=== PATIENT | male | born 1950 | race Caucasian/White ===

== ENCOUNTER 2017-04-09 17:44 | Emergency (ER) | payer MEDICARE, OTHER ==
[~2017-04-09] VITALS: Ht 167.6 cm; Wt 92.9 kg
[~2017-04-09 17:44] MED LIST: OMPR20CCR PO; ZOFR4TAB3 SL
[2017-04-09 17:59] VITALS: BP 155/76; PULSE 91; RESP 18; TEMP 98.9; O2SAT 94
[2017-04-09] MEDS ORDERED: SODIUM CHLOR 0.9% 1000 ML INJ 1,000 ML IV ONE ×2 (18:15→20:00)
[2017-04-09] MEDS ORDERED: SODIUM CHLORIDE 0.9% FLUSH 10 ML FLUSH IVF PRN (18:15)
--- NOTE | 2017-04-09 18:18 | PD ---
HPI Chief Complaint: Abnormal Results Time Seen by Provider: 18:16 Travel History International Travel<30 days: No Contact w/Intl Traveler<30days: No Traveled to known affect area: No History of Present Illness HPI 66-year-old male patient with history of hypertension, for the last 6 weeks has been having polydipsia and polyuria, and [facility] noted that his A1c's were high and his blood sugar was in the 400s today. He denies any vomiting, fevers, abdominal pain, or any other symptoms. He has not previously been officially diagnosed with diabetes. 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 Awake and oriented 3. SKIN: Focused skin assessment warm/dry. HEAD: Atraumatic. Normocephalic. EYES: Pupils equal and round. No scleral icterus. No injection or drainage. ENT: No nasal bleeding or discharge. Mucous membranes pink and moist. NECK: Trachea midline. No JVD. CARDIOVASCULAR: Regular rate and rhythm. No murmur appreciated. RESPIRATORY: No accessory muscle use. Clear to auscultation. Breath sounds equal bilaterally. GASTROINTESTINAL: Abdomen soft, non-tender, nondistended. Hepatic and splenic margins not palpable. MUSCULOSKELETAL: No obvious deformities. No clubbing. No cyanosis. No edema. NEUROLOGICAL: Awake and alert. No obvious cranial nerve deficits. Motor grossly within normal limits. Normal speech. PSYCHIATRIC: Appropriate mood and affect; insight and judgment normal. Data Data Last Documented VS Vital Signs Date Time Temp Pulse Resp B/P (MAP) Pulse Ox O2 Delivery O2 Flow Rate FiO2 04/09/17 18:21 Room Air 04/09/17 18:21 97 04/09/17 17:59 98.9 91 18 155/76 (102) Orders Orders Complete Blood Count With Diff (04/09/17 18:13) Comprehensive Metabolic Panel (04/09/17 18:13) Beta Hydroxybutyrate (Acetone) (04/09/17 18:13) Urinalysis - C+S If Indicated (04/09/17 18:13) Ecg Monitoring (04/09/17 18:13) Iv Access Insert/Monitor (04/09/17 18:13) Oximetry (04/09/17 18:13) NPO (04/09/17 18:13) Sodium Chloride 0.9% Flush (Ns Flush) (04/09/17 18:15) Sodium Chlor 0.9% 1000 Ml Inj (Ns 1000 M (04/09/17 18:15) Labs Laboratory Tests Test 04/09/17 18:25 04/09/17 18:30 White Blood Count 4.3 TH/MM3 Red Blood Count 5.38 MIL/MM3 Hemoglobin 14.8 GM/DL Hematocrit 44.9 % Mean Corpuscular Volume 83.4 FL Mean Corpuscular Hemoglobin 27.5 PG Mean Corpuscular Hemoglobin Concent 32.9 % Red Cell Distribution Width 12.2 % Platelet Count 197 TH/MM3 Mean Platelet Volume 9.5 FL Neutrophils (%) (Auto) 54.5 % Lymphocytes (%) (Auto) 35.7 % Monocytes (%) (Auto) 6.7 % Eosinophils (%) (Auto) 2.3 % Basophils (%) (Auto) 0.8 % Neutrophils # (Auto) 2.4 TH/MM3 Lymphocytes # (Auto) 1.5 TH/MM3 Monocytes # (Auto) 0.3 TH/MM3 Eosinophils # (Auto) 0.1 TH/MM3 Basophils # (Auto) 0.0 TH/MM3 CBC Comment DIFF FINAL Differential Comment Creatinine 1.50 MG/DL Albumin 3.6 GM/DL Calcium Level 9.0 MG/DL Total Bilirubin 0.5 MG/DL Sodium Level 130 MEQ/L Potassium Level 4.3 MEQ/L Chloride Level 96 MEQ/L Carbon Dioxide Level 22.8 MEQ/L Anion Gap 11 MEQ/L Estimat Glomerular Filtration Rate 47 ML/MIN B-Hydroxybutyrate 0.94 MMOL/L MDM Medical Decision Making Medical Screen Exam Complete: Yes Emergency Medical Condition: Yes Medical Record Reviewed: Yes Interpretation(s) Laboratory Tests Test 04/09/17 18:25 04/09/17 18:30 Creatinine 1.50 MG/DL (0.60-1.30) Sodium Level 130 MEQ/L (136-145) Chloride Level 96 MEQ/L (98-107) Estimat Glomerular Filtration Rate 47 ML/MIN (>89) B-Hydroxybutyrate 0.94 MMOL/L (0.00-0.39) Differential Diagnosis Hyperglycemia, rule out other metabolic processes versus DKA Narrative Course Patient was given IV fluids in the ER. Lab work was ordered for further evaluation. Physician Communication Physician Communication Case is signed out at [address] Matthews pending workup. Disposition based on pending metabolic panel. Diagnosis Primary Impression: Hyperglycemia Scripts No Active Prescriptions or Reported Meds Condition: Stable Saige Riojas MD Apr 09, 2017 18:18
[2017-04-09 18:21] VITALS: O2SAT 97
[2017-04-09 18:37] LABS: AUTOMATED NEUTROPHIL # 2.4 TH/MM3 (1.8-7.7); BASOPHIL % 0.8 % (0.0-2.0); EOSINOPHIL # 0.1 TH/MM3 (0-0.4); EOSINOPHIL % 2.3 % (0.0-4.0); HEMATOCRIT 44.9 % (39.0-51.0); HEMOGLOBIN 14.8 GM/DL (13.0-17.0); LYMPH % 35.7 % (9.0-44.0); LYMPHOCYTE # 1.5 TH/MM3 (1.0-4.8); MEAN CELL VOLUME 83.4 FL (80.0-100.0); MEAN CORPUSCULAR HEMOGLOBIN 27.5 PG (27.0-34.0); MEAN CORPUSCULAR HGB CONC 32.9 % (32.0-36.0); MEAN PLATELET VOLUME 9.5 FL (7.0-11.0); MONO % 6.7 % (0.0-8.0); MONOCYTE # 0.3 TH/MM3 (0-0.9); NEUT % 54.5 % (16.0-70.0); PLATELET COUNT 197 TH/MM3 (150-450); RED BLOOD COUNT 5.38 MIL/MM3 (4.50-5.90); RED CELL DISTRIBUTION WIDTH 12.2 % (11.6-17.2); WHITE BLOOD COUNT 4.3 TH/MM3 (4.0-11.0)
[2017-04-09 18:47] LABS: CHLORIDE 96 MEQ/L (98-107); SODIUM (NA) 130 MEQ/L (136-145)
[2017-04-09 18:51] LABS: ALBUMIN 3.6 GM/DL (3.4-5.0); BICARBONATE 22.8 MEQ/L (21.0-32.0)
[2017-04-09 18:54] LABS: GLOMERULAR FILTRATION RATE 47 ML/MIN (>89)
[2017-04-09 18:54] LABS: BILIRUBIN, URINE NEG (NEG); BLOOD, URINE NEG (NEG); GLUCOSE,URINE 500 mg/dL (NEG); KETONE, URINE TRACE mg/dL (NEG); NITRITE,URINE NEG (NEG); PH, URINE 5.5 (5.0-8.5); URINE LEUKOCYTE ESTERASE NEG (NEG)
[2017-04-09 18:55] LABS: TOTAL BILIRUBIN ADULT 0.5 MG/DL (0.2-1.0)
--- NOTE | 2017-04-09 18:59 | PD ---
Physical Exam Date Seen by Provider: Apr 09, 2017 Time Seen by Provider: 18:58 Narrative The patient is a 66-year-old male was initially limited by the previous physician. Please refer to the initial history, physical, diagnostic evaluation , treatment modality plan. The patient was signed out at 7 PM with laboratory evaluation pending for hyperglycemia and possible new onset diabetes. Data Data Last Documented VS Vital Signs Date Time Temp Pulse Resp B/P (MAP) Pulse Ox O2 Delivery O2 Flow Rate FiO2 04/09/17 20:25 82 16 119/79 (92) 94 Room Air 04/09/17 17:59 98.9 Orders Orders Complete Blood Count With Diff (04/09/17 18:13) Comprehensive Metabolic Panel (04/09/17 18:13) Beta Hydroxybutyrate (Acetone) (04/09/17 18:13) Urinalysis - C+S If Indicated (04/09/17 18:13) Ecg Monitoring (04/09/17 18:13) Iv Access Insert/Monitor (04/09/17 18:13) Oximetry (04/09/17 18:13) NPO (04/09/17 18:13) Sodium Chloride 0.9% Flush (Ns Flush) (04/09/17 18:15) Sodium Chlor 0.9% 1000 Ml Inj (Ns 1000 M (04/09/17 18:15) Insulin Human Regular Inj (Novolin R Inj (04/09/17 19:00) Sodium Chlor 0.9% 1000 Ml Inj (Ns 1000 M (04/09/17 20:00) Labs Laboratory Tests Test 04/09/17 18:25 04/09/17 18:30 White Blood Count 4.3 TH/MM3 Red Blood Count 5.38 MIL/MM3 Hemoglobin 14.8 GM/DL Hematocrit 44.9 % Mean Corpuscular Volume 83.4 FL Mean Corpuscular Hemoglobin 27.5 PG Mean Corpuscular Hemoglobin Concent 32.9 % Red Cell Distribution Width 12.2 % Platelet Count 197 TH/MM3 Mean Platelet Volume 9.5 FL Neutrophils (%) (Auto) 54.5 % Lymphocytes (%) (Auto) 35.7 % Monocytes (%) (Auto) 6.7 % Eosinophils (%) (Auto) 2.3 % Basophils (%) (Auto) 0.8 % Neutrophils # (Auto) 2.4 TH/MM3 Lymphocytes # (Auto) 1.5 TH/MM3 Monocytes # (Auto) 0.3 TH/MM3 Eosinophils # (Auto) 0.1 TH/MM3 Basophils # (Auto) 0.0 TH/MM3 CBC Comment DIFF FINAL Differential Comment Blood Urea Nitrogen 23 MG/DL Creatinine 1.50 MG/DL Random Glucose 735 MG/DL Total Protein 7.7 GM/DL Albumin 3.6 GM/DL Calcium Level 9.0 MG/DL Alkaline Phosphatase 340 U/L Aspartate Amino Transf (AST/SGOT) 34 U/L Alanine Aminotransferase (ALT/SGPT) 45 U/L Total Bilirubin 0.5 MG/DL Sodium Level 130 MEQ/L Potassium Level 4.3 MEQ/L Chloride Level 96 MEQ/L Carbon Dioxide Level 22.8 MEQ/L Anion Gap 11 MEQ/L Estimat Glomerular Filtration Rate 47 ML/MIN B-Hydroxybutyrate 0.94 MMOL/L Urine Color YELLOW Urine Turbidity CLEAR Urine pH 5.[address] 1.031 Urine Protein NEG mg/dL Urine Glucose (UA) 500 mg/dL Urine Ketones TRACE mg/dL Urine Occult Blood NEG Urine Nitrite NEG Urine Bilirubin NEG Urine Leukocyte Esterase NEG Urine WBC 0-2 /hpf Urine Squamous Epithelial Cells 0-5 /hpf Microscopic Urinalysis Comment CULT NOT INDICATED MDM Medical Record Reviewed: Yes Supervised Visit with TERRY: No Interpretation(s) Laboratory Tests Test 04/09/17 18:25 04/09/17 18:30 White Blood Count 4.3 TH/MM3 Red Blood Count 5.38 MIL/MM3 Hemoglobin 14.8 GM/DL Hematocrit 44.9 % Mean Corpuscular Volume 83.4 FL Mean Corpuscular Hemoglobin 27.5 PG Mean Corpuscular Hemoglobin Concent 32.9 % Red Cell Distribution Width 12.2 % Platelet Count 197 TH/MM3 Mean Platelet Volume 9.5 FL Neutrophils (%) (Auto) 54.5 % Lymphocytes (%) (Auto) 35.7 % Monocytes (%) (Auto) 6.7 % Eosinophils (%) (Auto) 2.3 % Basophils (%) (Auto) 0.8 % Neutrophils # (Auto) 2.4 TH/MM3 Lymphocytes # (Auto) 1.5 TH/MM3 Monocytes # (Auto) 0.3 TH/MM3 Eosinophils # (Auto) 0.1 TH/MM3 Basophils # (Auto) 0.0 TH/MM3 CBC Comment DIFF FINAL Differential Comment Blood Urea Nitrogen 23 MG/DL Creatinine 1.50 MG/DL Random Glucose 735 MG/DL Total Protein 7.7 GM/DL Albumin 3.6 GM/DL Calcium Level 9.0 MG/DL Alkaline Phosphatase 340 U/L Aspartate Amino Transf (AST/SGOT) 34 U/L Alanine Aminotransferase (ALT/SGPT) 45 U/L Total Bilirubin 0.5 MG/DL Sodium Level 130 MEQ/L Potassium Level 4.3 MEQ/L Chloride Level 96 MEQ/L Carbon Dioxide Level 22.8 MEQ/L Anion Gap 11 MEQ/L Estimat Glomerular Filtration Rate 47 ML/MIN B-Hydroxybutyrate 0.94 MMOL/L Urine Color YELLOW Urine Turbidity CLEAR Urine pH 5.[address] 1.031 Urine Protein NEG mg/dL Urine Glucose (UA) 500 mg/dL Urine Ketones TRACE mg/dL Urine Occult Blood NEG Urine Nitrite NEG Urine Bilirubin NEG Urine Leukocyte Esterase NEG Urine WBC 0-2 /hpf Urine Squamous Epithelial Cells 0-5 /hpf Microscopic Urinalysis Comment CULT NOT INDICATED Differential Diagnosis Differential diagnosis includes hyperglycemia, new onset diabetes, DKA, hyperosmolar non-ketosis, dehydration, electrolyte abnormality, acute kidney injury, dehydration. Narrative Course The patient was initially evaluated by the previous physician. Please refer to the initial history, physical, diagnostic evaluation, and treatment modality plan. The patient was signed out at 7 PM with laboratory evaluation pending for hyperglycemia. The patient received 1 L normal saline and 6 units of insulin regular IV push by the previous physician. The patient's anion gap is normal, beta hydroxy was elevated 0.94, glucose was greater than 700 on complete metabolic profile. Repeat Accu-Chek was obtained for a p.m. Another liter of normal saline was ordered. Patient has mild renal sufficiency with a creatinine 1.5 and GFR 47. The 8 PM blood glucose was down to 387. The patient appears to have new onset diabetes, no evidence of DKA. Anion gap is normal, the patient we placed on metformin 850 twice a day. He will be provided a copy of his labs, is advised to follow-up with the [place] clinic tomorrow. Diagnosis Primary Impression: Hyperglycemia Patient Instructions: General Instructions Additional Instruction: Please provide the patient a copy of his labs at discharge. Metformin as directed. Follow-up with the [place] clinic tomorrow. Return if symptoms worsen or progress. Med/Other Pt SpecificInfo: Prescription(s) given Scripts Metformin (Metformin) 500 Mg Tab 500 MG PO BIDPC for Blood Sugar Management, #60 TAB 0 Refills Prov: Jordon Matthews MD 04/09/17 Disposition: 01 DISCHARGE HOME Condition: Stable Jordon Matthews MD Apr 09, 2017 18:59
[2017-04-09 19:00] VITALS: BP 143/81; PULSE 83; RESP 16; O2SAT 95
[2017-04-09] MEDS ORDERED: INSULIN HUMAN REGULAR 1,000 UNITS/10 ML VIAL IV PUSH ONE (19:00)
[2017-04-09 19:05] LABS: SQUAMOUS EPITHELIAL CELL URINE 0-5 /hpf (0-5); URINE COLOR YELLOW (YELLW/STRAW); WBC, URINE 0-2 /hpf (0-5)
[2017-04-09 19:18] LABS: ALKALINE PHOSPHATASE 340 U/L (45-117)
[2017-04-09 19:51] LABS: TOTAL PROTEIN 7.7 GM/DL (6.4-8.2)
[2017-04-09 19:52] LABS: ALT (GPT) 45 U/L (12-78); AST (GOT) 34 U/L (15-37); BLOOD UREA NITROGEN 23 MG/DL (7-18); GLUCOSE,RANDOM 735 MG/DL (74-106)
[2017-04-09 20:25] VITALS: BP 119/79; PULSE 82; RESP 16; O2SAT 94
[2017-04-09] MEDS ORDERED: METF500T PO (20:35)
[2017-04-09 21:48] VITALS: BP 135/83
== END 2017-04-09 21:51 | disposition home or self-care (01) ==
LOC: PHED 17:44
DX: R73.9 Hyperglycemia, unspecified (principal); R63.1 Polydipsia; R35.8 Other polyuria; I10 Essential (primary) hypertension; E78.00 Pure hypercholesterolemia, unspecified; Z86.69 Personal history of other diseases of the nervous system and sense organs
CPT/HCPCS: 80053; 81001; 82010; 85025; 96361; 96374; 99284; J1815; J7030